=== PATIENT | female | born 1955 | race Caucasian/White ===

== ENCOUNTER 2021-02-21 12:29 | Observation (INO) ==
[2021-02-21] MEDS ORDERED: 0.9 % Sodium Chloride 1,000 ML IVC ONE (13:23)
[2021-02-21] MEDS ORDERED: Ondansetron 4 MG/2 ML VIAL IVP ONE (13:23)
[2021-02-21 14:00] LABS: Basophils % 0.2 %; Eosinophils # 0.2 K/mcL (0.0-0.6); Eosinophils % 2.5 %; Hematocrit 33.7 % (35.3-44.9); Hemoglobin 10.6 g/dL (11.5-15.4); Immature Granulocytes % 0.4 % (0-4); Lymphocytes # 2.3 K/mcL (0.6-4.6); Lymphocytes % 26.5 %; Mean Corpuscular HGB Conc 31.5 g/dL (31.6-35.5); Mean Corpuscular Hemoglobin 29.4 pg (28.0-33.3); Mean Corpuscular Volume 93.6 fL (83.0-100.0); Mean Platelet Volume 10.1 fL (9.4-12.4); Monocytes # 0.7 K/mcL (0.0-1.3); Neutrophils # 5.3 K/mcL (1.6-8.9); Platelet Count 179 K/mcL (140-400); Red Cell Distribution Width 13.6 % (11.5-14.5); Segmented Neutrophils % 62.4 %; White Blood Count 8.5 K/mcL (4.3-11.1)
[2021-02-21 14:12] LABS: INR 2.3; Prothrombin Time 26.2 Seconds (9.4-12.1)
[2021-02-21 14:25] LABS: BUN/Creatinine Ratio 23 (6-26); Blood Urea Nitrogen 14 mg/dL (8-23); Calcium 9.6 mg/dL (8.6-10.3); Carbon Dioxide 32 mEq/L (23-29); Chloride 101 mEq/L (98-107); Glucose 144 mg/dL (70-105); Osmolality,Calculated 293 (280-300); Potassium 4.5 mEq/L (3.5-5.1); Sodium 140 mEq/L (136-145); Troponin I < 0.03 ng/mL (< 0.04); eGFR For African Americans > 60 (> 60); eGFR For Non-African Americans > 60 (> 60)
[2021-02-21] MEDS ORDERED: Ondansetron ODT 4 MG TAB.RAPDIS SL PRN (15:04)
[2021-02-21] MEDS ORDERED: Acetaminophen 325 MG TABLET PO PRN (15:04)
[2021-02-21] MEDS ORDERED: Melatonin 3 MG TABLET PO PRN (15:04)
[2021-02-21] MEDS ORDERED: Aspirin 325 MG TABLET PO ONE (15:06)
[2021-02-21] MEDS ORDERED: *HR* Dextrose 50 % in Water (Vial) 50 ML VIAL IVP PRN (15:59)
[2021-02-21] MEDS ORDERED: Dextrose Gel 15 GM/37.5 ML TUBE PO PRN ×2 (15:59)
[2021-02-21] MEDS ORDERED: D5% in Water 1,000 ML IVC PRN (15:59)
[2021-02-21] MEDS ORDERED: Ipratropium/Albuterol Neb 3 ML IH PRN (16:06)
[2021-02-21] MEDS ORDERED: *HR* Warfarin 4 MG TABLET PO ONE (18:00)
[2021-02-21] MEDS ORDERED: Warfarin perPT PO PRN (18:00)
[2021-02-21] MEDS: Metoprolol XL (24 HR) Succ 50 MG TAB.ER.24H PO SCH (18:41)
[2021-02-21] MEDS: Insulin LISPRO 300 UNITS/3 ML VIAL SUBQ SCH (19:26)
[2021-02-21] MEDS: Insulin DETEMIR 100 UNIT/ML X5UNITS SUBQ SCH (20:20)
[2021-02-21] MEDS: Ranolazine 500 MG TAB.ER.12H PO SCH (20:27)
[2021-02-21] MEDS: Gabapentin 300 MG CAPSULE PO SCH (20:27)
[2021-02-21] MEDS ORDERED: Insulin LISPRO 300 UNITS/3 ML VIAL SUBQ SCH (21:00)
[2021-02-22 03:45] LABS: INR 2.2; Prothrombin Time 24.9 Seconds (9.4-12.1)
[2021-02-22 03:55] LABS: Alanine Aminotransferase 14 Units/L (7-52); Albumin 4.1 g/dL (3.5-5.7); Albumin/Globulin Ratio 1.4 (1.1-2.2); Alkaline Phosphatase 50 Units/L (34-104); Aspartate Amino Transferase 18 Units/L (13-39); BUN/Creatinine Ratio 22 (6-26); Bilirubin,Total 0.3 mg/dL (0.3-1.0); Blood Urea Nitrogen 12 mg/dL (8-23); Calcium 9.5 mg/dL (8.6-10.3); Carbon Dioxide 30 mEq/L (23-29); Chloride 103 mEq/L (98-107); Cholesterol 166 mg/dL (< 200); Globulin 2.9 g/dL (2.4-3.5); Glucose 114 mg/dL (70-105); HDL Cholesterol 41 mg/dL (40-59); Osmolality,Calculated 289 (280-300); Potassium 4.3 mEq/L (3.5-5.1); Sodium 139 mEq/L (136-145); Triglycerides 239 mg/dL (< 150); eGFR For African Americans > 60 (> 60); eGFR For Non-African Americans > 60 (> 60)
[2021-02-22 03:56] LABS: LDL Cholesterol,Calculated 77 mg/dL (< 100)
[2021-02-22 05:35] LABS: Estimated Average Glucose 131 mg/dl; Hemoglobin A1C 6.2 %
[2021-02-22 07:00] VITALS: BP 107/53
[2021-02-22] MEDS: Insulin LISPRO 300 UNITS/3 ML VIAL SUBQ SCH (08:32)
[2021-02-22] MEDS: Ranolazine 500 MG TAB.ER.12H PO SCH (08:33)
[2021-02-22] MEDS: Gabapentin 300 MG CAPSULE PO SCH (08:33)
[2021-02-22] MEDS: Insulin DETEMIR 100 UNIT/ML X5UNITS SUBQ SCH (08:36)
[2021-02-22] MEDS: Metoprolol XL (24 HR) Succ 50 MG TAB.ER.24H PO SCH (08:36)
[2021-02-22] MEDS ORDERED: Aspirin 81 MG TAB.CHEW PO SCH (09:00)
[2021-02-22] MEDS ORDERED: Isosorbide MONOnitrate (24 HR) 60 MG TAB.ER.24H PO SCH (09:00)
== END 2021-02-22 10:37 | disposition home or self-care (01) ==
LOC: EMEROOARM 12:29 → 3BNU 12:29 → SUATTDRO 18:13 → 3BNU 18:53
PROVIDERS: ADMIT Internal Medicine; ATTEND Internal Medicine

== ENCOUNTER 2022-07-23 14:41 | Inpatient (IN) ==
[2022-07-23] MEDS ORDERED: Iopamidol - 370 500 ML MLS IVP ONE (15:47)
[2022-07-23 16:18] LABS: Bilirubin,Urine Negative (Negative); Blood,Urine Negative (Negative); Clarity,Urine Clear (Clear); Color,Urine Light-Orange (Yellow); Glucose,Urine (UA) Normal (Normal); Ketones,Urine Negative (Negative); Leukocyte Esterase,Urine Negative (Negative); Mucus,Urine Few per lpf (None-Few); Nitrite,Urine Negative (Negative); Protein,Urine 30 mg/dL (Neg-Trace); RBC,Urine 0-3 per hpf (0-3); Specific Gravity,Urine 1.021 (1.010-1.025); Squamous Epithelial Cell,Urine Few per hpf (None-Few); Urobilinogen,Urine Normal (Normal); WBC,Urine 0-3 per hpf (0-3)
[2022-07-23 16:18] LABS: Basophils # 0.1 K/mcL (0.0-0.2); Basophils % 0.3 %; Eosinophils # 0.1 K/mcL (0.0-0.6); Eosinophils % 0.3 %; Hematocrit 32.7 % (35.3-44.9); Hemoglobin 10.6 g/dL (11.5-15.4); Immature Granulocytes % 0.6 % (0-4); Lymphocytes # 1.2 K/mcL (0.6-4.6); Lymphocytes % 6.7 %; Mean Corpuscular HGB Conc 32.4 g/dL (31.6-35.5); Mean Corpuscular Hemoglobin 31.1 pg (28.0-33.3); Mean Corpuscular Volume 95.9 fL (83.0-100.0); Mean Platelet Volume 9.7 fL (9.4-12.4); Monocytes # 1.3 K/mcL (0.0-1.3); Neutrophils # 15.3 K/mcL (1.6-8.9); Platelet Count 191 K/mcL (140-400); Red Blood Count 3.41 M/mcL (3.82-4.97); Red Cell Distribution Width 14.5 % (11.5-14.5); Segmented Neutrophils % 85.1 %
[2022-07-23 16:26] LABS: BUN/Creatinine Ratio 23 (6-26); Blood Urea Nitrogen 15 mg/dL (8-23); Calcium 9.9 mg/dL (8.6-10.3); Carbon Dioxide 32 mEq/L (23-29); Chloride 97 mEq/L (98-107); Ethanol < 10 mg/dL (Less than 10); Glucose 71 mg/dL (70-105); Osmolality,Calculated 279 (280-300); Potassium 4.8 mEq/L (3.5-5.1); Sodium 135 mEq/L (136-145)
[2022-07-23 16:30] LABS: INR 3.1; Prothrombin Time 34.5 Seconds (9.4-12.1)
[2022-07-23] MEDS ORDERED: Doxycycline 100 MG in 0.9 % Sodium Chloride Mini Bag 100 ML IVPB ONE (19:03)
[2022-07-23] MEDS ORDERED: cefTRIAXone 1,000 MG in Water for inj. (sterile) 10 ML IVP ONE (19:04)
[2022-07-23] MEDS ORDERED: Ondansetron 4 MG/2 ML VIAL IVP PRN (20:05)
[2022-07-23] MEDS ORDERED: Naloxone 0.4 MG/ML INJ IVP PRN (20:05)
[2022-07-23 20:17] LABS: Influenza A PCR Negative (Negative); Influenza B PCR Negative (Negative); Resp. Syncytial Virus PCR Negative (Negative)
[2022-07-23 20:18] LABS: SARS-CoV-2 by PCR (In House) Negative (Negative)
[2022-07-23] MEDS ORDERED: D5% in Water 1,000 ML IVC PRN (21:21)
[2022-07-23] MEDS ORDERED: Dextrose Gel 15 GM/37.5 ML TUBE PO PRN ×2 (21:21)
[2022-07-23] MEDS ORDERED: *HR* Dextrose 50 % in Water (Syg) 50 ML SYRINGE IVP PRN (21:21)
[2022-07-24 00:02] LABS: Troponin I < 0.03 ng/mL (< 0.04)
[2022-07-24 04:49] LABS: Hematocrit 33.8 % (35.3-44.9); Hemoglobin 10.9 g/dL (11.5-15.4); Mean Corpuscular HGB Conc 32.2 g/dL (31.6-35.5); Mean Corpuscular Hemoglobin 31.1 pg (28.0-33.3); Mean Corpuscular Volume 96.3 fL (83.0-100.0); Mean Platelet Volume 9.8 fL (9.4-12.4); Platelet Count 186 K/mcL (140-400); Red Blood Count 3.51 M/mcL (3.82-4.97); Red Cell Distribution Width 14.5 % (11.5-14.5); White Blood Count 14.3 K/mcL (4.3-11.1)
[2022-07-24] MEDS: Doxycycline 100 MG in 0.9 % Sodium Chloride Mini Bag 100 ML IVPB SCH ×2 (04:52→21:18)
[2022-07-24 05:03] LABS: INR 2.6; Prothrombin Time 28.5 Seconds (9.4-12.1)
[2022-07-24 05:10] LABS: BUN/Creatinine Ratio 28 (6-26); Blood Urea Nitrogen 14 mg/dL (8-23); Calcium 9.8 mg/dL (8.6-10.3); Carbon Dioxide 30 mEq/L (23-29); Chloride 99 mEq/L (98-107); Glucose 231 mg/dL (70-105); Osmolality,Calculated 296 (280-300); Potassium 4.8 mEq/L (3.5-5.1); Sodium 139 mEq/L (136-145)
[2022-07-24] MEDS ORDERED: *HR* Heparin 5,000 UNIT/ML VIAL SQ SCH (06:00)
[2022-07-24] MEDS ORDERED: Ipratropium/Albuterol Neb 3 ML IH SCH (16:00)
[2022-07-24] MEDS ORDERED: *HR* LORazepam 2 MG/ML VIAL IM STA (16:34)
[2022-07-24] MEDS ORDERED: *HR* Warfarin 4 MG TABLET PO ONE (18:00)
[2022-07-24] MEDS ORDERED: Warfarin perPT PO PRN (18:00)
[2022-07-24] MEDS: Insulin DETEMIR 100 UNIT/ML X5UNITS SUBQ SCH ×2 (19:03→21:24)
[2022-07-24] MEDS: Levalbuterol Neb 1.25 MG/3 ML IH SCH ×2 (19:54→21:28)
[2022-07-24 20:06] LABS: ABG Base Excess 5 mEq/L (-2 to 3); ABG HCO3 29 mEq/L (21-27); ABG Oxygen Saturation 96 % (95-98); ABG PCO2 39 mmHg (35-45); ABG PH 7.49 pH Units (7.32-7.45); ABG PO2 75 mmHg (85-104); ABG TCO2 30 mEq/L (20-26)
[2022-07-25] MEDS: Acetaminophen 325 MG TABLET PO PRN (02:15)
[2022-07-25] MEDS: Levalbuterol Neb 1.25 MG/3 ML IH SCH ×4 (04:12→21:38)
[2022-07-25] MEDS: Doxycycline 100 MG in 0.9 % Sodium Chloride Mini Bag 100 ML IVPB SCH ×2 (04:23→17:42)
[2022-07-25 04:57] LABS: INR 2.4; Prothrombin Time 26.3 Seconds (9.4-12.1)
[2022-07-25] MEDS: Insulin LISPRO 300 UNITS/3 ML VIAL SUBQ SCH ×7 (07:12→17:14)
[2022-07-25] MEDS: cefTRIAXone 1,000 MG in 0.9 % Sodium Chloride Mini Bag 100 ML IVPB SCH ×2 (07:12→09:04)
[2022-07-25] MEDS: Metoprolol XL (24 HR) Succ 25 MG TAB.ER.24H PO SCH ×2 (07:13→09:05)
[2022-07-25] MEDS: Furosemide 40 MG/4 ML VIAL IVP SCH ×2 (07:13→09:04)
[2022-07-25] MEDS ORDERED: Nitroglycerin 0.4 MG TAB.SUBL SL PRN (08:43)
[2022-07-25] MEDS ORDERED: predniSONE 20 MG TABLET PO SCH (09:00)
[2022-07-25] MEDS: Insulin DETEMIR 100 UNIT/ML X5UNITS SUBQ SCH ×2 (09:04→21:59)
[2022-07-25] MEDS: Cyanocobalamin (B-12) 1,000 MCG TABLET PO SCH (09:05)
[2022-07-25] MEDS: BuPROPion XL (24 HR) 150 MG TABLET PO SCH (09:05)
[2022-07-25] MEDS: Cholecalciferol (D-3) 1,000 UNIT (25MCG) TABLET PO SCH (09:05)
[2022-07-25] MEDS: Aspirin Enteric Coated 81 MG Tablet PO SCH (09:05)
[2022-07-25] MEDS ORDERED: methylPREDNISolone 125 MG/2 ML VIAL IVP ONE (09:26)
[2022-07-25] MEDS: Gabapentin 300 MG CAPSULE PO SCH ×3 (10:15→21:59)
[2022-07-25] MEDS: Isosorbide MONOnitrate (24 HR) 60 MG TAB.ER.24H PO SCH (10:15)
[2022-07-25] MEDS: lisinopriL 5 MG TABLET PO SCH (10:15)
[2022-07-25] MEDS: Ranolazine 500 MG TAB.ER.12H PO SCH ×2 (10:16→21:59)
[2022-07-25] MEDS: Mirabegron [Myrbetriq] 25 MG Tab.Er.24h PO SCH (10:18)
[2022-07-25] MEDS: Budesonide/Glycopyr/Formoterol [Breztri Aerosphere] IH SCH ×2 (10:18→21:43)
[2022-07-25] MEDS: Niacin (24 HR) 500 MG TAB.ER.24H PO SCH (10:25)
[2022-07-25 11:22] LABS: ABG Base Excess 4 mEq/L (-2 to 3); ABG HCO3 28 mEq/L (21-27); ABG Oxygen Saturation 86 % (95-98); ABG PCO2 36 mmHg (35-45); ABG PH 7.49 pH Units (7.32-7.45); ABG PO2 47 mmHg (85-104); ABG TCO2 29 mEq/L (20-26)
[2022-07-25] MEDS: MethylPREDNISolone 40 MG/ML VIAL IVP SCH ×2 (12:29→17:40)
[2022-07-25] MEDS ORDERED: Furosemide 40 MG TABLET PO SCH (12:30)
[2022-07-25] MEDS ORDERED: *HR* Warfarin 2 MG TABLET PO ONE (18:00)
[2022-07-25] MEDS ORDERED: *HR* Warfarin 4 MG TABLET PO ONE (18:00)
[2022-07-25] MEDS: traZODone 50 MG TABLET PO SCH (21:58)
[2022-07-26] MEDS: MethylPREDNISolone 40 MG/ML VIAL IVP SCH ×3 (00:29→12:16)
[2022-07-26 04:12] LABS: Hematocrit 30.8 % (35.3-44.9); Mean Corpuscular HGB Conc 32.5 g/dL (31.6-35.5); Mean Corpuscular Hemoglobin 31.1 pg (28.0-33.3); Mean Corpuscular Volume 95.7 fL (83.0-100.0); Mean Platelet Volume 9.6 fL (9.4-12.4); Platelet Count 175 K/mcL (140-400); Red Blood Count 3.22 M/mcL (3.82-4.97); Red Cell Distribution Width 14.3 % (11.5-14.5)
[2022-07-26 04:20] LABS: INR 3.1; Prothrombin Time 34.5 Seconds (9.4-12.1)
[2022-07-26] MEDS: Levalbuterol Neb 1.25 MG/3 ML IH SCH ×4 (04:31→22:47)
[2022-07-26 04:35] LABS: Calcium 9.4 mg/dL (8.6-10.3); Potassium 4.3 mEq/L (3.5-5.1)
[2022-07-26] MEDS: Doxycycline 100 MG in 0.9 % Sodium Chloride Mini Bag 100 ML IVPB SCH ×2 (04:59→17:12)
[2022-07-26] MEDS: 0.9 % Sodium Chloride 1,000 ML IVC SCH ×2 (09:00→17:12)
[2022-07-26] MEDS: cefTRIAXone 1,000 MG in 0.9 % Sodium Chloride Mini Bag 100 ML IVPB SCH (09:00)
[2022-07-26] MEDS: Isosorbide MONOnitrate (24 HR) 60 MG TAB.ER.24H PO SCH (09:01)
[2022-07-26] MEDS: Aspirin Enteric Coated 81 MG Tablet PO SCH (09:01)
[2022-07-26] MEDS: Cholecalciferol (D-3) 1,000 UNIT (25MCG) TABLET PO SCH (09:01)
[2022-07-26] MEDS: lisinopriL 5 MG TABLET PO SCH (09:01)
[2022-07-26] MEDS: Gabapentin 300 MG CAPSULE PO SCH ×3 (09:01→22:52)
[2022-07-26] MEDS: Ranolazine 500 MG TAB.ER.12H PO SCH ×2 (09:01→22:50)
[2022-07-26] MEDS: Metoprolol XL (24 HR) Succ 25 MG TAB.ER.24H PO SCH (09:01)
[2022-07-26] MEDS: Niacin (24 HR) 500 MG TAB.ER.24H PO SCH (09:01)
[2022-07-26] MEDS: BuPROPion XL (24 HR) 150 MG TABLET PO SCH (09:01)
[2022-07-26] MEDS: Cyanocobalamin (B-12) 1,000 MCG TABLET PO SCH (09:01)
[2022-07-26] MEDS: Insulin LISPRO 300 UNITS/3 ML VIAL SUBQ SCH ×6 (09:32→17:17)
[2022-07-26] MEDS: Insulin DETEMIR 100 UNIT/ML X5UNITS SUBQ SCH ×2 (09:32→22:49)
[2022-07-26] MEDS: Mirabegron [Myrbetriq] 25 MG Tab.Er.24h PO SCH (09:38)
[2022-07-26] MEDS: Budesonide/Glycopyr/Formoterol [Breztri Aerosphere] IH SCH (09:59)
[2022-07-26 11:19] LABS: C-Reactive Protein 111 mg/L (Less than 10); Lactate Dehydrogenase 316 Units/L (140-271)
[2022-07-26] MEDS: Budesonide/Formoterol 160/4.5 1 PUFF INH IH SCH ×2 (11:20→22:45)
[2022-07-26 11:37] LABS: Ferritin 269 ng/mL (10-120)
[2022-07-26 11:51] LABS: Adenovirus Not Detected (Not Detect); Bordetella Pertussis Not Detected (Not Detect); Chlamydophila pneumoniae Not Detected (Not Detect); Coronavirus 229E Not Detected (Not Detect); Coronavirus HKU1 Not Detected (Not Detect); Coronavirus NL63 Not Detected (Not Detect); Coronavirus OC43 Not Detected (Not Detect); Human Metapneumovirus Not Detected (Not Detect); Human Rhinovirus/Enterovirus Not Detected (Not Detect); Influenza A Subtype 2009 H1 Not Detected (Not Detect); Influenza B Not Detected (Not Detect); Mycoplasma pneumoniae Not Detected (Not Detect); Parainfluenza Virus 1 Not Detected (Not Detect); Parainfluenza Virus 2 Not Detected (Not Detect); Parainfluenza Virus 3 Not Detected (Not Detect); Parainfluenza Virus 4 Not Detected (Not Detect); Respiratory Syncytial Virus Not Detected (Not Detect)
[2022-07-26 11:57] LABS: SARS-CoV-2 DETECTED (Not Detect)
[2022-07-26 17:56] LABS: Alanine Aminotransferase 34 Units/L (7-52); Albumin 3.6 g/dL (3.5-5.7); Alkaline Phosphatase 40 Units/L (34-104); Aspartate Amino Transferase 32 Units/L (13-39); BUN/Creatinine Ratio 51 (6-26); Bilirubin,Total 0.3 mg/dL (0.3-1.0); Blood Urea Nitrogen 36 mg/dL (8-23); Calcium 9.4 mg/dL (8.6-10.3); Carbon Dioxide 28 mEq/L (23-29); Chloride 103 mEq/L (98-107); Globulin 3.5 g/dL (2.4-3.5); Glucose 145 mg/dL (70-105); Osmolality,Calculated 299 (280-300); Potassium 4.1 mEq/L (3.5-5.1); Sodium 139 mEq/L (136-145); Total Protein 7.1 g/dL (6.4-8.9)
[2022-07-26] MEDS: traZODone 50 MG TABLET PO SCH (22:52)
[2022-07-27] MEDS: Levalbuterol 1 PUFF INHALER IH SCH ×4 (04:19→21:52)
[2022-07-27] MEDS: Doxycycline 100 MG in 0.9 % Sodium Chloride Mini Bag 100 ML IVPB SCH ×2 (07:03→16:56)
[2022-07-27] MEDS: Insulin LISPRO 300 UNITS/3 ML VIAL SUBQ SCH ×6 (07:55→16:59)
[2022-07-27 08:30] LABS: Hematocrit 32.6 % (35.3-44.9); Hemoglobin 10.6 g/dL (11.5-15.4); Mean Corpuscular HGB Conc 32.5 g/dL (31.6-35.5); Mean Corpuscular Volume 95.3 fL (83.0-100.0); Mean Platelet Volume 10.7 fL (9.4-12.4); Red Blood Count 3.42 M/mcL (3.82-4.97); Red Cell Distribution Width 14.6 % (11.5-14.5); White Blood Count 15.8 K/mcL (4.3-11.1)
[2022-07-27 08:37] LABS: Alanine Aminotransferase 28 Units/L (7-52); Albumin 3.4 g/dL (3.5-5.7); Albumin/Globulin Ratio 1.2 (1.1-2.2); Alkaline Phosphatase 36 Units/L (34-104); Aspartate Amino Transferase 32 Units/L (13-39); BUN/Creatinine Ratio 57 (6-26); Bilirubin,Total 0.3 mg/dL (0.3-1.0); Blood Urea Nitrogen 26 mg/dL (8-23); Calcium 8.7 mg/dL (8.6-10.3); Carbon Dioxide 25 mEq/L (23-29); Chloride 109 mEq/L (98-107); Globulin 2.8 g/dL (2.4-3.5); Glucose 66 mg/dL (70-105); Osmolality,Calculated 295 (280-300); Potassium 4.2 mEq/L (3.5-5.1); Sodium 141 mEq/L (136-145); Total Protein 6.2 g/dL (6.4-8.9)
[2022-07-27 08:43] LABS: INR 2.7; Prothrombin Time 30.3 Seconds (9.4-12.1)
[2022-07-27 08:46] LABS: Platelet Count 88 K/mcL (140-400)
[2022-07-27] MEDS ORDERED: cefTRIAXone 1,000 MG in Water for inj. (sterile) 10 ML IVP SCH (09:00)
[2022-07-27] MEDS ORDERED: Remdesivir 200 MG in 0.9 % Sodium Chloride 100 ML IVPB ONE (09:08)
[2022-07-27] MEDS: Insulin DETEMIR 100 UNIT/ML X5UNITS SUBQ SCH ×2 (09:26→22:19)
[2022-07-27] MEDS: BuPROPion XL (24 HR) 150 MG TABLET PO SCH (09:57)
[2022-07-27] MEDS: Cholecalciferol (D-3) 1,000 UNIT (25MCG) TABLET PO SCH (09:57)
[2022-07-27] MEDS: Gabapentin 300 MG CAPSULE PO SCH ×3 (09:57→22:19)
[2022-07-27] MEDS: Cyanocobalamin (B-12) 1,000 MCG TABLET PO SCH (09:58)
[2022-07-27] MEDS: Ranolazine 500 MG TAB.ER.12H PO SCH ×2 (09:58→22:19)
[2022-07-27] MEDS: lisinopriL 5 MG TABLET PO SCH (09:58)
[2022-07-27] MEDS: Aspirin Enteric Coated 81 MG Tablet PO SCH (09:58)
[2022-07-27] MEDS: Isosorbide MONOnitrate (24 HR) 60 MG TAB.ER.24H PO SCH (09:58)
[2022-07-27] MEDS: Metoprolol XL (24 HR) Succ 25 MG TAB.ER.24H PO SCH (09:58)
[2022-07-27] MEDS: Mirabegron [Myrbetriq] 25 MG Tab.Er.24h PO SCH ×2 (10:00→12:16)
[2022-07-27] MEDS: Niacin (24 HR) 500 MG TAB.ER.24H PO SCH (10:02)
[2022-07-27] MEDS: Sennosides/Docusate Sodium TABLET PO SCH (10:03)
[2022-07-27] MEDS: Budesonide/Formoterol 160/4.5 1 PUFF INH IH SCH ×2 (11:55→21:52)
[2022-07-27] MEDS ORDERED: Furosemide 40 MG in 0.9 % Sodium Chloride 50 ML IV ONE (15:17)
[2022-07-27] MEDS ORDERED: Furosemide 40 MG/4 ML VIAL IVP ONE (15:30)
[2022-07-27] MEDS: Acetaminophen 325 MG TABLET PO PRN (17:45)
[2022-07-27] MEDS ORDERED: *HR* Warfarin 2 MG TABLET PO ONE (18:00)
[2022-07-27] MEDS: traZODone 50 MG TABLET PO SCH (22:19)
[2022-07-28] MEDS: Levalbuterol 1 PUFF INHALER IH SCH ×4 (03:47→22:11)
[2022-07-28] MEDS: Doxycycline 100 MG in 0.9 % Sodium Chloride Mini Bag 100 ML IVPB SCH ×2 (05:12→17:34)
[2022-07-28] MEDS: Ranolazine 500 MG TAB.ER.12H PO SCH ×2 (08:32→23:24)
[2022-07-28] MEDS: BuPROPion XL (24 HR) 150 MG TABLET PO SCH (08:33)
[2022-07-28] MEDS: Metoprolol XL (24 HR) Succ 25 MG TAB.ER.24H PO SCH (08:33)
[2022-07-28] MEDS: Sennosides/Docusate Sodium TABLET PO SCH (08:33)
[2022-07-28] MEDS: Cyanocobalamin (B-12) 1,000 MCG TABLET PO SCH (08:33)
[2022-07-28] MEDS: Gabapentin 300 MG CAPSULE PO SCH ×3 (08:33→23:25)
[2022-07-28] MEDS: Isosorbide MONOnitrate (24 HR) 60 MG TAB.ER.24H PO SCH (08:33)
[2022-07-28] MEDS: Niacin (24 HR) 500 MG TAB.ER.24H PO SCH (08:33)
[2022-07-28] MEDS: lisinopriL 5 MG TABLET PO SCH (08:33)
[2022-07-28] MEDS: Aspirin Enteric Coated 81 MG Tablet PO SCH (08:34)
[2022-07-28] MEDS: Cholecalciferol (D-3) 1,000 UNIT (25MCG) TABLET PO SCH (08:34)
[2022-07-28] MEDS: Mirabegron [Myrbetriq] 25 MG Tab.Er.24h PO SCH (08:36)
[2022-07-28] MEDS: Remdesivir 100 MG in 0.9 % Sodium Chloride 100 ML IVPB SCH (08:40)
[2022-07-28] MEDS: Budesonide/Formoterol 160/4.5 1 PUFF INH IH SCH ×2 (10:39→22:13)
[2022-07-28] MEDS: Insulin LISPRO 300 UNITS/3 ML VIAL SUBQ SCH ×6 (11:24→17:35)
[2022-07-28] MEDS: Insulin DETEMIR 100 UNIT/ML X5UNITS SUBQ SCH ×2 (11:25→23:25)
[2022-07-28 14:14] LABS: Hematocrit 29.3 % (35.3-44.9); Hemoglobin 9.5 g/dL (11.5-15.4); Mean Corpuscular HGB Conc 32.4 g/dL (31.6-35.5); Mean Corpuscular Hemoglobin 31.3 pg (28.0-33.3); Mean Corpuscular Volume 96.4 fL (83.0-100.0); Mean Platelet Volume 10.1 fL (9.4-12.4); Platelet Count 177 K/mcL (140-400); Red Blood Count 3.04 M/mcL (3.82-4.97); Red Cell Distribution Width 14.5 % (11.5-14.5)
[2022-07-28 14:26] LABS: INR 3.1; Prothrombin Time 34.7 Seconds (9.4-12.1)
[2022-07-28 14:42] LABS: Alanine Aminotransferase 39 Units/L (7-52); Albumin 3.3 g/dL (3.5-5.7); Albumin/Globulin Ratio 1.2 (1.1-2.2); Alkaline Phosphatase 38 Units/L (34-104); Aspartate Amino Transferase 37 Units/L (13-39); BUN/Creatinine Ratio 43 (6-26); Bilirubin,Direct 0.1 mg/dL (0.0-0.2); Bilirubin,Indirect 0.3 mg/dL (0.0-1.0); Bilirubin,Total 0.4 mg/dL (0.3-1.0); Blood Urea Nitrogen 20 mg/dL (8-23); Calcium 8.9 mg/dL (8.6-10.3); Carbon Dioxide 30 mEq/L (23-29); Chloride 101 mEq/L (98-107); Globulin 2.7 g/dL (2.4-3.5); Glucose 291 mg/dL (70-105); Osmolality,Calculated 295 (280-300); Potassium 4.7 mEq/L (3.5-5.1); Sodium 136 mEq/L (136-145)
[2022-07-28] MEDS ORDERED: *HR* Warfarin 2 MG TABLET PO ONE (18:00)
[2022-07-28] MEDS: traZODone 50 MG TABLET PO SCH (23:24)
[2022-07-29] MEDS: Levalbuterol 1 PUFF INHALER IH SCH ×4 (04:22→22:39)
[2022-07-29] MEDS: Doxycycline 100 MG in 0.9 % Sodium Chloride Mini Bag 100 ML IVPB SCH (07:34)
[2022-07-29] MEDS: Gabapentin 300 MG CAPSULE PO SCH ×3 (07:51→23:01)
[2022-07-29] MEDS: Metoprolol XL (24 HR) Succ 25 MG TAB.ER.24H PO SCH (07:51)
[2022-07-29] MEDS: Insulin DETEMIR 100 UNIT/ML X5UNITS SUBQ SCH ×2 (07:51→23:01)
[2022-07-29] MEDS: Sennosides/Docusate Sodium TABLET PO SCH (07:52)
[2022-07-29] MEDS: Aspirin Enteric Coated 81 MG Tablet PO SCH (07:52)
[2022-07-29] MEDS: lisinopriL 5 MG TABLET PO SCH (07:52)
[2022-07-29] MEDS: Niacin (24 HR) 500 MG TAB.ER.24H PO SCH (07:52)
[2022-07-29] MEDS: Ranolazine 500 MG TAB.ER.12H PO SCH ×2 (07:52→23:01)
[2022-07-29] MEDS: BuPROPion XL (24 HR) 150 MG TABLET PO SCH (07:52)
[2022-07-29] MEDS: Isosorbide MONOnitrate (24 HR) 60 MG TAB.ER.24H PO SCH (07:53)
[2022-07-29] MEDS: Cyanocobalamin (B-12) 1,000 MCG TABLET PO SCH (07:53)
[2022-07-29] MEDS: Cholecalciferol (D-3) 1,000 UNIT (25MCG) TABLET PO SCH (07:54)
[2022-07-29] MEDS: Insulin LISPRO 300 UNITS/3 ML VIAL SUBQ SCH ×6 (07:54→17:44)
[2022-07-29] MEDS: Remdesivir 100 MG in 0.9 % Sodium Chloride 100 ML IVPB SCH (07:57)
[2022-07-29] MEDS: Mirabegron [Myrbetriq] 25 MG Tab.Er.24h PO SCH (08:08)
[2022-07-29 10:52] LABS: Hematocrit 30.9 % (35.3-44.9); Hemoglobin 10.1 g/dL (11.5-15.4); Mean Corpuscular HGB Conc 32.7 g/dL (31.6-35.5); Mean Corpuscular Hemoglobin 31.3 pg (28.0-33.3); Mean Corpuscular Volume 95.7 fL (83.0-100.0); Mean Platelet Volume 9.8 fL (9.4-12.4); Platelet Count 153 K/mcL (140-400); Red Blood Count 3.23 M/mcL (3.82-4.97); Red Cell Distribution Width 14.4 % (11.5-14.5)
[2022-07-29 11:02] LABS: INR 2.5; Prothrombin Time 27.7 Seconds (9.4-12.1)
[2022-07-29 11:11] LABS: Alanine Aminotransferase 31 Units/L (7-52); Albumin 3.4 g/dL (3.5-5.7); Albumin/Globulin Ratio 1.3 (1.1-2.2); Alkaline Phosphatase 41 Units/L (34-104); Aspartate Amino Transferase 19 Units/L (13-39); BUN/Creatinine Ratio 42 (6-26); Bilirubin,Direct 0.1 mg/dL (0.0-0.2); Bilirubin,Indirect 0.3 mg/dL (0.0-1.0); Bilirubin,Total 0.4 mg/dL (0.3-1.0); Blood Urea Nitrogen 18 mg/dL (8-23); Calcium 9.2 mg/dL (8.6-10.3); Carbon Dioxide 31 mEq/L (23-29); Chloride 101 mEq/L (98-107); Globulin 2.7 g/dL (2.4-3.5); Glucose 184 mg/dL (70-105); Osmolality,Calculated 291 (280-300); Potassium 4.4 mEq/L (3.5-5.1); Sodium 137 mEq/L (136-145); Total Protein 6.1 g/dL (6.4-8.9)
[2022-07-29] MEDS: Budesonide/Formoterol 160/4.5 1 PUFF INH IH SCH ×2 (11:14→22:36)
[2022-07-29] MEDS ORDERED: Furosemide 40 MG TABLET PO SCH (15:00)
[2022-07-29] MEDS: Furosemide 20 MG TABLET PO SCH (15:25)
[2022-07-29] MEDS ORDERED: *HR* Warfarin 2 MG TABLET PO ONE (18:00)
[2022-07-29] MEDS: traZODone 50 MG TABLET PO SCH (23:00)
[2022-07-29] MEDS: Doxycycline 100 MG CAPSULE PO SCH (23:01)
[2022-07-30] MEDS: Levalbuterol 1 PUFF INHALER IH SCH ×3 (03:56→15:57)
[2022-07-30] MEDS ORDERED: Metoprolol XL (24 HR) Succ 50 MG TAB.ER.24H PO SCH (09:00)
[2022-07-30] MEDS: Cholecalciferol (D-3) 1,000 UNIT (25MCG) TABLET PO SCH (09:31)
[2022-07-30] MEDS: Furosemide 20 MG TABLET PO SCH (09:31)
[2022-07-30] MEDS: Isosorbide MONOnitrate (24 HR) 60 MG TAB.ER.24H PO SCH (09:32)
[2022-07-30] MEDS: Aspirin Enteric Coated 81 MG Tablet PO SCH (09:32)
[2022-07-30] MEDS: lisinopriL 5 MG TABLET PO SCH (09:32)
[2022-07-30] MEDS: Cyanocobalamin (B-12) 1,000 MCG TABLET PO SCH (09:32)
[2022-07-30] MEDS: Sennosides/Docusate Sodium TABLET PO SCH (09:33)
[2022-07-30] MEDS: Gabapentin 300 MG CAPSULE PO SCH ×2 (09:33→13:53)
[2022-07-30] MEDS: BuPROPion XL (24 HR) 150 MG TABLET PO SCH (09:33)
[2022-07-30] MEDS: Doxycycline 100 MG CAPSULE PO SCH (09:33)
[2022-07-30] MEDS: Ranolazine 500 MG TAB.ER.12H PO SCH (09:33)
[2022-07-30] MEDS: Niacin (24 HR) 500 MG TAB.ER.24H PO SCH (09:33)
[2022-07-30] MEDS: Remdesivir 100 MG in 0.9 % Sodium Chloride 100 ML IVPB SCH (09:48)
[2022-07-30] MEDS: Insulin LISPRO 300 UNITS/3 ML VIAL SUBQ SCH ×4 (10:01→13:57)
[2022-07-30] MEDS: Insulin DETEMIR 100 UNIT/ML X5UNITS SUBQ SCH (10:02)
[2022-07-30] MEDS: Mirabegron [Myrbetriq] 25 MG Tab.Er.24h PO SCH (10:04)
[2022-07-30] MEDS: Budesonide/Formoterol 160/4.5 1 PUFF INH IH SCH (10:26)
[2022-07-30 15:13] LABS: Hematocrit 31.9 % (35.3-44.9); Hemoglobin 10.4 g/dL (11.5-15.4); Mean Corpuscular HGB Conc 32.6 g/dL (31.6-35.5); Mean Corpuscular Hemoglobin 31.3 pg (28.0-33.3); Mean Corpuscular Volume 96.1 fL (83.0-100.0); Mean Platelet Volume 10.2 fL (9.4-12.4); Platelet Count 215 K/mcL (140-400); Red Blood Count 3.32 M/mcL (3.82-4.97); Red Cell Distribution Width 14.7 % (11.5-14.5); White Blood Count 21.9 K/mcL (4.3-11.1)
[2022-07-30 15:19] LABS: INR 2.2; Prothrombin Time 24.3 Seconds (9.4-12.1)
[2022-07-30 15:30] VITALS: BP 132/78; PULSE 85; TEMP 98.4; O2SAT 93
[2022-07-30 15:34] LABS: Alanine Aminotransferase 25 Units/L (7-52); Albumin 3.3 g/dL (3.5-5.7); Albumin/Globulin Ratio 1.2 (1.1-2.2); Alkaline Phosphatase 39 Units/L (34-104); Aspartate Amino Transferase 15 Units/L (13-39); BUN/Creatinine Ratio 32 (6-26); Bilirubin,Direct 0.2 mg/dL (0.0-0.2); Bilirubin,Indirect 0.3 mg/dL (0.0-1.0); Bilirubin,Total 0.5 mg/dL (0.3-1.0); Blood Urea Nitrogen 18 mg/dL (8-23); Calcium 9.1 mg/dL (8.6-10.3); Carbon Dioxide 28 mEq/L (23-29); Chloride 98 mEq/L (98-107); Globulin 2.8 g/dL (2.4-3.5); Glucose 240 mg/dL (70-105); Osmolality,Calculated 294 (280-300); Potassium 4.5 mEq/L (3.5-5.1); Sodium 137 mEq/L (136-145); Total Protein 6.1 g/dL (6.4-8.9)
[2022-07-30] MEDS ORDERED: *HR* Warfarin 2 MG TABLET PO ONE (18:00)
== END 2022-07-30 16:29 | disposition home or self-care (01) | DRG 871 ==
LOC: 3ANU 14:41 → EMEROOARM 14:41 → 3ANU 21:28 → SUATTDRO 07-24 10:55
PROVIDERS: ADMIT Internal Medicine; ATTEND Internal Medicine